=== PATIENT | female | born 1975 | race Caucasian/White ===

== ENCOUNTER 2016-09-05 08:22 | Inpatient (IN) | payer OTHER ==
[~2016-09-05] VITALS: Ht 154.9 cm; Wt 62.3 kg
[2016-09-07] MEDS: D5%-LACTATED RINGERS 1,000 ML IV SCH ×2 (06:21→14:21)
[2016-09-07] MEDS ORDERED: OXYTOCIN 30U/ 0.9% NaCL 500ML 500 ML IV PRN (06:21)
[2016-09-07] MEDS ORDERED: OXYTOCIN 30U/ 0.9% NaCL 500ML 500 ML IV ONE (06:21)
[2016-09-07] MEDS ORDERED: NEWBORN KIT ONE (06:28)
[2016-09-07] MEDS ORDERED: OXYTOCIN 30U/ 0.9% NaCL 500ML 500 ML ONE (06:28)
[2016-09-07] MEDS ORDERED: CALCIUM CARBONATE 500 MG TAB.CHEW PO PRN (06:30)
[2016-09-07] MEDS ORDERED: METOCLOPRAMIDE 5 MG/ML, 2ML IVPush PRN (06:30)
[2016-09-07] MEDS ORDERED: SODIUM CITRATE/CITRIC ACID 30 ML UDC PO PRN (06:30)
[2016-09-07] MEDS ORDERED: FENTANYL PF 100 MCG/2ML IVPush PRN (06:30)
[2016-09-07] MEDS ORDERED: PENICILLIN GK 5,000,000 UNITS in DEXTROSE 5% 100 ML IVPB ONE (06:30)
[2016-09-07] MEDS ORDERED: ALUMINUM/MAG/SIMETHICONE 30 ML UDC PO PRN (06:30)
[2016-09-07] MEDS ORDERED: ONDANSETRON 2MG/ML, 2ML IVPush PRN ×2 (06:30→12:30)
[2016-09-07] MEDS ORDERED: BUTORPHANOL 1 MG/ML, 1ML IVPush PRN ×2 (06:30)
[2016-09-07] MEDS ORDERED: TERBUTALINE 1 MG/ML, 1ML IVPush PRN (06:30)
[2016-09-07] MEDS ORDERED: FENTANYL PF 100 MCG/2ML IV PRN ×2 (06:30→12:30)
[2016-09-07] MEDS: LACTATED RINGERS 1,000 ML IV SCH ×6 (06:48→22:32)
[2016-09-07] MEDS ORDERED: LIDOCAINE 1%, 20ML ONE (10:36)
[2016-09-07] MEDS ORDERED: MISOPROSTOL 200 MCG TABLET ONE (10:36)
[2016-09-07] MEDS ORDERED: PENICILLIN GK 2,500,000 UNITS in DEXTROSE 5% 100 ML IVPB SCH (11:00)
[2016-09-07] MEDS: PENICILLIN GK 2,500,000 UNITS in DEXTROSE 5% 100 ML IVPB SCH ×2 (11:00→15:00)
[2016-09-07] MEDS ORDERED: LACTATED RINGERS 1,000 ML IV SCH (11:06)
[2016-09-07] MEDS ORDERED: FENTANYL/BUPIV./NS/PF 250 ML EPIDCONT SCH (11:06)
[2016-09-07] MEDS ORDERED: FENTANYL/BUPIV./NS/PF 250 ML EPIDCONT ONE (11:09)
[2016-09-07] MEDS ORDERED: BUPIVACAINE/PF 0.25% ONE (11:09)
[2016-09-07] MEDS ORDERED: LACTATED RINGERS 1,000 ML IVBOLUS PRN (11:30)
[2016-09-07] MEDS ORDERED: EPHEDRINE 50 MG/ML, 1ML IVPush PRN ×2 (11:30→12:30)
[2016-09-07] MEDS ORDERED: NALOXONE 0.4 MG/ML, 1ML IVPush PRN (11:30)
[2016-09-07] MEDS ORDERED: SODIUM CITRATE/CITRIC ACID 30 ML UDC ONE (12:01)
[2016-09-07] MEDS ORDERED: METOCLOPRAMIDE 5 MG/ML, 2ML ONE ×2 (12:01→12:33)
[2016-09-07] MEDS ORDERED: FENTANYL PF 100 MCG/2ML ONE ×2 (12:20)
[2016-09-07] MEDS ORDERED: PROMETHAZINE 25 MG/ML, 1ML IV PRN (12:30)
[2016-09-07] MEDS ORDERED: hydrALAzine 20 MG/ML, 1ML IV PRN (12:30)
[2016-09-07] MEDS ORDERED: LABETALOL 5MG/ML, 20ML IV PRN (12:30)
[2016-09-07] MEDS ORDERED: MEPERIDINE/PF 25MG/0.5ML IVPush PRN (12:30)
[2016-09-07] MEDS ORDERED: HYDROcodone/APAP 7.5-325MG/15ML UDC PO PRN (12:30)
[2016-09-07] MEDS ORDERED: OXYcodone 5 MG/5 ML ORAL.SOL UDC PO PRN (12:30)
[2016-09-07] MEDS ORDERED: ALBUTEROL SULFATE 2.5 MG/3 ML NPPB PRN (12:30)
[2016-09-07] MEDS ORDERED: HYDROmorphone 1 MG/ML, 1ML IV PRN (12:30)
[2016-09-07] MEDS: OXYTOCIN 30U/ 0.9% NaCL 500ML 500 ML IV SCH ×2 (12:32→22:32)
[2016-09-07] MEDS ORDERED: CEFAZOLIN 1,000 MG ONE (12:33)
[2016-09-07] MEDS ORDERED: ONDANSETRON 2MG/ML, 2ML ONE (12:33)
[2016-09-07] MEDS ORDERED: DEXAMETHASONE 4 MG/ML, 1ML ONE (12:33)
[2016-09-07] MEDS ORDERED: KETOROLAC 30 MG/1 ML ONE (12:33)
[2016-09-07] MEDS ORDERED: METHYLERGONOVINE 0.2 MG/ML IM PRN (13:00)
[2016-09-07] MEDS ORDERED: BISACODYL 10 MG SUPP PR PRN (13:00)
[2016-09-07] MEDS ORDERED: MEPERIDINE/PF 25MG/0.5ML IM PRN (13:00)
[2016-09-07] MEDS ORDERED: ACETAMINOPHEN 325 MG TABLET PO PRN (13:00)
[2016-09-07] MEDS ORDERED: MISOPROSTOL 200 MCG TABLET PR PRN (13:00)
[2016-09-07] MEDS ORDERED: OXYcodone/APAP 5/325MG TABLET PO PRN (13:00)
[2016-09-07] MEDS ORDERED: ONDANSETRON 2MG/ML, 2ML IV PRN (13:00)
[2016-09-07] MEDS ORDERED: morphine SULFATE 10 MG/ML, 1ML IVPush PRN ×2 (13:00)
[2016-09-07] MEDS ORDERED: METOCLOPRAMIDE 5 MG/ML, 2ML IV PRN (13:00)
[2016-09-07] MEDS ORDERED: GLYCERIN ADULT SUPP PR PRN (13:00)
[2016-09-07] MEDS ORDERED: IBUPROFEN 600 MG TABLET PO PRN (13:00)
[2016-09-07] MEDS ORDERED: MEPERIDINE/PF 100 MG/ML ONE (13:25)
[2016-09-07 15:45] VITALS: BP 99/60
[2016-09-07 18:00] VITALS: BP 104/68
[2016-09-07] MEDS: KETOROLAC 30 MG/1 ML IV SCH ×2 (18:59→19:00)
[2016-09-07 20:00] VITALS: BP 92/51
[2016-09-07] MEDS: DOCUSATE 100 MG CAPSULE PO PRN (20:41)
[2016-09-07] MEDS: OXYcodone/APAP 5/325MG TABLET PO PRN (20:42)
[2016-09-08 00:35] VITALS: BP 96/58
[2016-09-08] MEDS: KETOROLAC 30 MG/1 ML IV SCH ×4 (00:36→18:41)
[2016-09-08] MEDS: OXYcodone/APAP 5/325MG TABLET PO PRN ×5 (00:36→20:39)
[2016-09-08] MEDS ORDERED: OXYC-302 PO (03:53)
[2016-09-08] MEDS ORDERED: IBUP-1222 PO (03:54)
[2016-09-08] MEDS ORDERED: DOCU-30 PO (03:55)
[2016-09-08] MEDS: LACTATED RINGERS 1,000 ML IV SCH ×5 (04:32→20:32)
[2016-09-08 04:40] VITALS: BP 89/48
[2016-09-08 05:52] VITALS: BP 91/57
[2016-09-08 07:30] VITALS: BP 95/55
[2016-09-08] MEDS ORDERED: PRENATAL VIT/IRON/FA 1 EACH TABLET ONE (07:43)
[2016-09-08] MEDS: PRENATAL VIT/IRON/FA 1 EACH TABLET PO SCH (07:49)
[2016-09-08] MEDS: DOCUSATE 100 MG CAPSULE PO PRN ×2 (07:49→20:40)
[2016-09-08] MEDS: OXYTOCIN 30U/ 0.9% NaCL 500ML 500 ML IV SCH ×2 (08:32→18:32)
[2016-09-08 12:02] VITALS: BP 92/61
[2016-09-08 20:20] VITALS: BP 102/58
[2016-09-09] MEDS: KETOROLAC 30 MG/1 ML IV SCH ×2 (01:23→07:36)
[2016-09-09] MEDS: OXYTOCIN 30U/ 0.9% NaCL 500ML 500 ML IV SCH (04:32)
[2016-09-09] MEDS: LACTATED RINGERS 1,000 ML IV SCH ×3 (04:32→12:32)
[2016-09-09 07:30] VITALS: BP 86/54
[2016-09-09] MEDS: DOCUSATE 100 MG CAPSULE PO PRN (07:36)
[2016-09-09] MEDS: OXYcodone/APAP 5/325MG TABLET PO PRN ×2 (07:36→12:34)
[2016-09-09] MEDS: PRENATAL VIT/IRON/FA 1 EACH TABLET PO SCH (07:36)
== END 2016-09-09 14:39 | disposition home or self-care (01) | DRG 766 ==
LOC: LDIP 09-07 06:20 → 2NW 09-07 15:32
PROVIDERS: ADMIT Obstetrics & Gynecology; ATTEND Obstetrics & Gynecology
PROC: 10D00Z1 Extraction of Products of Conception, Low, Open Approach (ICD-10-PCS; principal; 2016-09-07)
DX: O99.824 Streptococcus B carrier state complicating childbirth (principal); Z37.0 Single live birth; O99.02 Anemia complicating childbirth; Z3A.40 40 weeks gestation of pregnancy; O32.1XX0 Maternal care for breech presentation, not applicable or unspecified; O09.513 Supervision of elderly primigravida, third trimester; O77.0 Labor and delivery complicated by meconium in amniotic fluid; D64.9 Anemia, unspecified
CPT/HCPCS: 36415; 85025; 86850; 86900; J0690; J1100; J1885; J2175; J2405; J2540; J3010; J2590; J2765; J7120